=== PATIENT | female | born 1995 | race African-American/Black ===

== ENCOUNTER 2020-09-09 05:29 | Emergency (ER) | payer MEDICAID ==
[~2020-09-09] VITALS: Ht 157.5 cm; Wt 56.7 kg
[2020-09-09 06:38] LABS: Urine Bacteria NONE SEEN /hpf (None Seen); Urine Blood 3+ /uL (Negative); Urine Specific Gravity 1.018 (1.001-1.035); Urine WBC 133 /hpf (0 - 5); Urine WBC Clumps PRESENT /hpf (None Seen)
[2020-09-09 07:23] LABS: Basophils # (auto) 0 10 ^3/uL (0-0.2); Basophils % (auto) 0.5 % (0.0-2.0); Eosinophils # (auto) 0.1 10 ^3/uL (0-0.8); Eosinophils % (auto) 1.7 % (0.0-7.0); Hematocrit 29.5 % (36.0-46.0); Hemoglobin 9.6 g/dL (12.2-16.2); Lymphocytes # (auto) 1.7 10 ^3/uL (0.4-5.4); Lymphocytes % (auto) 20.3 % (10.0-50.0); Mean Corpuscular Hemoglobin 24.1 pg (28.0-32.0); Mean Corpuscular Hgb Conc. 32.4 g/dL (32.0-36.0); Mean Corpuscular Volume 74.2 fL (80.0-100.0); Monocytes # (auto) 0.8 10 ^3/uL (0-1.3); Monocytes % (auto) 10.2 % (0.0-12.0); Neutrophils # (auto) 5.6 10 ^3/uL (1.6-8.6); Neutrophils % (auto) 67.3 % (37.0-80.0); Nucleated Red Blood Cells % 0.1 %; Platelet Count (auto) 293 10^3/uL (140-450); Red Blood Cells 3.97 10^6/uL (4.0-5.20); Red Cell Distribution Width 18.1 % (11.8-14.3); White Blood Cell 8.3 10^3/uL (4.4-10.8)
[2020-09-09 07:47] LABS: Albumin 3.2 g/dL (3.4-5.0); BUN/Creatinine Ratio 12.5; Calcium 8.7 mg/dL (8.5-10.1); Potassium 3.7 mmol/L (3.5-5.1)
[2020-09-09 07:50] LABS: Bilirubin, Total 0.3 mg/dL (0.2-1.0); Total Protein 7.4 g/dL (6.4-8.2)
[2020-09-09 07:56] LABS: INR 0.93 (0.9-1.15); Partial Thromboplastin Time 24.4 sec (23.0-31.2)
[2020-09-09] MEDS ORDERED: cefTRIAXone SOD 1,000 MG VL IM ONE (08:30)
[2020-09-09 08:40] VITALS: BP 108/72
== END 2020-09-09 08:49 | disposition home or self-care (01) ==
LOC: ER 05:29
DX: O20.0 Threatened abortion (principal); O23.42 Unspecified infection of urinary tract in pregnancy, second trimester; Z3A.19 19 weeks gestation of pregnancy
CPT/HCPCS: 36415; 76805; 80053; 81001; 84702; 85025; 85610; 85730; 96372; 99284; J0696

== ENCOUNTER 2020-09-09 18:54 | Emergency (ER) | payer MEDICAID ==
[~2020-09-09] VITALS: Ht 157.5 cm; Wt 56.2 kg
[2020-09-09 19:30] VITALS: BP 127/58
== END 2020-09-10 01:36 | disposition left against medical advice (07) ==
LOC: ER 18:54
DX: O20.8 Other hemorrhage in early pregnancy (principal); Z3A.18 18 weeks gestation of pregnancy; Z53.21 Procedure and treatment not carried out due to patient leaving prior to being seen by health care provider

== ENCOUNTER 2020-12-26 17:25 | Observation (INO) | payer MEDICAID ==
[~2020-12-26] VITALS: Ht 157.5 cm; Wt 66.7 kg
[2020-12-26 17:36] VITALS: BP 93/62
[2020-12-26] MEDS ORDERED: SODIUM CHLORIDE 0.9% 1,000 ML IV ONE (17:45)
[2020-12-26] MEDS ORDERED: LORazepam 2MG/ML-1ML VIAL IV ONE (17:45)
[2020-12-26] MEDS ORDERED: cefTRIAXone 1GM/50ML D5W 50 ML IV ONE ×2 (20:00→20:30)
[2020-12-26] MEDS ORDERED: SODIUM CHLORIDE 0.9% 1,000 ML IV SCH (20:00)
[2020-12-26] MEDS ORDERED: TERBUTALINE SULFATE 1 MG/ML 1ML VIAL SC ONE (20:18)
[2020-12-26] MEDS ORDERED: TERBUTALINE SULFATE 1 MG/ML 1ML VIAL SC SCH (20:30)
[2020-12-26 21:03] LABS: Urine Bacteria NONE SEEN /hpf (None Seen); Urine Blood Negative /uL (Negative); Urine Hyaline Cast FEW /lpf (0 - 2); Urine Mucus FEW (None Seen); Urine Specific Gravity 1.023 (1.001-1.035); Urine WBC 2 /hpf (0 - 5)
[2020-12-26 23:11] LABS: Alcohol, Urine < 3.0 mg/dL (0-10); Amphetamine Screen, Urine NEGATIVE (NEGATIVE); Barbiturate Scree,Urine NEGATIVE (NEGATIVE); Benzodiazephine Screen, Urine NEGATIVE (NEGATIVE); Cannabinoid Screen, Urine POSITIVE (NEGATIVE); Cocaine Screen, Urine NEGATIVE (NEGATIVE); Phencyclidine Screen, Urine NEGATIVE (NEGATIVE)
[2020-12-26 23:18] LABS: Opiate Scree,Urine NEGATIVE (NEGATIVE)
== END 2020-12-26 22:48 | disposition home or self-care (01) ==
LOC: ER 17:25 → EDBD 17:25 → LDRP 18:58
PROVIDERS: ADMIT Obstetrics & Gynecology; ATTEND Obstetrics & Gynecology
DX: O23.43 Unspecified infection of urinary tract in pregnancy, third trimester (principal); O60.03 Preterm labor without delivery, third trimester; O99.343 Other mental disorders complicating pregnancy, third trimester; F41.9 Anxiety disorder, unspecified; O32.1XX0 Maternal care for breech presentation, not applicable or unspecified; O21.2 Late vomiting of pregnancy; O99.323 Drug use complicating pregnancy, third trimester; F12.90 Cannabis use, unspecified, uncomplicated; Z98.891 History of uterine scar from previous surgery; Z87.891 Personal history of nicotine dependence; Z3A.34 34 weeks gestation of pregnancy; Z79.899 Other long term (current) drug therapy
CPT/HCPCS: 59025; 76818; 80307; 81001; 81002; 87086; 93005; 94760; 96361; 96365; 96372; 99285; G0378; J0696; J3105; J7030; 96360